=== PATIENT | male | born 1960 | race Hispanic/Latino ===

== ENCOUNTER 2017-05-07 12:00 | Outpatient (CLI) | payer SELFPAY | END 2017-05-07 12:01 | disposition home or self-care (01) | LOC: BICRAD 12:00 | PROVIDERS: ATTEND Family Medicine | DX: R05 Cough (principal) | CPT/HCPCS: 71046 ==

== ENCOUNTER 2017-09-21 22:06 | Emergency (ER) | payer SELFPAY ==
[2017-09-21] MEDS ORDERED: Morphine 4 MG/ML VIAL ONE (22:25)
[2017-09-21] MEDS ORDERED: Ondansetron ODT 4 MG TAB ONE (22:29)
[2017-09-21] MEDS ORDERED: Acetaminophen 500 MG TAB ONE (22:33)
[2017-09-21 22:40] LABS: #Eosinphils 0.1 thou/uL (0.0-0.7); #Lymphocytes 1.3 thou/uL (1.20-3.40); #Monocytes 0.3 thou/uL (0.11-0.59); #Neutrophils 6.3 thou/uL (1.40-6.50); %Basophils 0.2 % (0.0-1.0); %Eosinophils 0.6 % (0.0-10.0); %Neutrophils 79.1 % (42.0-75.0); Hemoglobin 13.7 g/dL (14.0-18.0); Mean Corpuscular HGB CONC 34.3 g/dL (32.0-36.0); Mean Corpuscular Hemoglobin 29.7 pg (27.0-31.0); Mean Corpuscular Volume 86.5 fl (80.0-94.0); Mean Platelet Volume 8.9 fL (7.4-10.4); Platelet Count 158 thou/uL (130-400); RBC Distribution Width 12.3 % (11.5-14.5); Red Blood Cell (RBC) Count 4.61 mill/uL (4.70-6.10)
--- NOTE | 2017-09-21 22:56 | CT ---
ABDOMEN CT WITHOUT CONTRAST PELVIC CT WITHOUT CONTRAST 09/21/17 HISTORY: Left flank pain. COMPARISON: None. TECHNIQUE: Abdomen and pelvic CT is performed without IV or oral contrast. Coronal reformatted images are submit maciel for interpretation. FINDINGS: ABDOMEN CT: Lung bases are clear. Heart size is normal. No significant pericardial fluid. Visualized aorta has a normal caliber. Limited evaluation of the solid organs by the lack of IV contrast. No solid organ abn ormality. Gallbladder is unremarkable. No mesenteric mass, lymphadenopathy, free air or free fluid. Limited evaluation of the alimentary canal due to lack of oral contrast. No evidence of bowel obstruc tion. Ileocecal junction is normal. Appendix is not appreciated. No inflammation of the cecal apex. S cattered fecal material in a nondistended, nondilated colon. Minimal diverticulosis. No evidence of d iverticulitis. With regard to the right kidney, no evidence of obstructive uropathy. The right ureter is unremarkable. There is mild left sided hydronephrosis with a left extrarenal pelvis. There are no calcifications in the left intra or extrarenal collecting system. Left ureter is unremarkable. PELVIC CT: No mass, lymphadenopathy, free air or free fluid. No calcifications within the urinary bladder. No ly tic or blastic lesions in the osseous structures. IMPRESSION: Mild left sided hydronephrosis without obstructing calculus. POS: TIARA
[2017-09-21 23:03] LABS: ALT (SGPT) 20 U/L (8-55); AST (SGOT) 23 U/L (5-34); Albumin 4.2 g/dL (3.5-5.0); Alkaline Phosphatase 51 U/L (40-150); Anion Gap 13 mmol/L (10-20); BUN (Urea Nitrogen) 22 mg/dL (8.4-25.7); Bilirubin, Total 0.4 mg/dL (0.2-1.2); Calc. Creatinine Clearance 0 mL/min (70-130); Calcium 9.1 mg/dL (7.8-10.44); Carbon Dioxide 23 mmol/L (22-29); Chloride 109 mmol/L (98-107); Estimated GFR-MDRD Greater than 90; Globulin 2.7 g/dL (2.4-3.5); Glucose 112 mg/dL (70-105); Lipase 43 U/L (8-78); Potassium 3.9 mmol/L (3.5-5.1); Protein, Total 6.9 g/dL (6.0-8.3); Sodium 141 mmol/L (136-145)
[2017-09-21 23:56] LABS: Bilirubin Negative (Negative); Blood, Urine Large (Negative); Clarity CLOUDY (Clear); Glucose, Urine (Dipstick) Negative (Negative); Leukocyte Negative (Negative); Nitrite Negative (Negative); Protein, Urine (Dipstick) Negative (Neg-Trace); Specific Gravity, Urine 1.029 (1.002-1.036); Urobilinogen 0.2 mg/dL (0.2-1.0); pH, Urine 5.5 (5.0-9.0)
[2017-09-21 23:59] LABS: Bacteria/HPF None Seen HPF (None Seen); Hyaline Casts/LPF 0-3 HYALINE CAST LPF (0-3 Hyaline); Pathc Cast-AUWi Flag 0.58 (0-2.49); RBC/HPF GREATER THAN 50-TNTC HPF (0-3); Squamous Epithelial None Seen HPF (0-3); WBC/HPF 0-3 HPF (0-3)
[2017-09-22] MEDS ORDERED: Ketorolac Tromethamine 30 MG/ML VIAL ONE (00:30)
== END 2017-09-22 00:55 | disposition home or self-care (01) ==
LOC: ERS 22:06
DX: N13.30 Unspecified hydronephrosis (principal)
CPT/HCPCS: 36415; 74176; 80053; 81003; 81015; 83690; 85025; 96361; 96374; J1885; J2270; Q0162